=== PATIENT | male | born 1955 | race Caucasian/White ===

== ENCOUNTER 2018-04-07 07:38 | Emergency (ER) | payer OTHER ==
[2018-04-07 08:13] VITALS: BP 135/80
--- NOTE | 2018-04-07 09:02 | UC ---
Knee Pain HPI - HPI Summary HPI Summary: twisted right knee when he slipped on an icy walk at work yesterday, with increasing pain several hours later. Has used acetaminophen with some relief, but no use of ice or wraps. Had increased pain overnight. No previous right knee injury. Works for firm doing office work, some snow plowing. - History of Current Complaint Chief Complaint: UCLowerExtremity Stated Complaint: W/C RIGHT KNEE INJURY Time Seen by Provider: 04/07/18 08:52 Hx Obtained From: Patient Onset/Duration: Sudden Onset, Lasting Days - 1 Severity Initially: Moderate Severity Currently: Mild Pain Intensity: 8 Character: Aching, Stiffness Aggravating Factor(s): Movement, Weight Bearing, Stairs Alleviating Factor(s): Rest, OTC Meds Associated Signs And Symptoms: Positive: Negative Able to Bear Weight: Yes - Risk Factors Septic Arthritis Risk Factor: Negative Gout Risk Factor: Negative - Allergies/Home Medications Allergies/Adverse Reactions: Allergies Allergy/AdvReac Type Severity Reaction Status Date / Time No Known Allergies Allergy Verified 04/07/18 08:09 Home Medications: Home Medications Amitriptyline TAB* [Elavil TAB*] 25 mg PO BEDTIME 04/07/18 [History Confirmed ] Atorvastatin* [Lipitor*] 40 mg PO DAILY 04/07/18 [History Confirmed 04/07/18] Chlorthalidone TAB* [Hygroton TAB*] 25 mg PO DAILY 04/07/18 [History Confirmed 04/07/18] Citalopram TAB* [CeleXA TAB*] 40 mg PO DAILY 04/07/18 [History Confirmed ] Enalapril TAB* [Vasotec TAB*] 5 mg PO DAILY 04/07/18 [History Confirmed 04/07/18 ] amLODIPine TAB* [Norvasc 5 mg TAB*] 10 mg PO DAILY 04/07/18 [History Confirmed 04/07/18] PMH/Surg Hx/FS Hx/Imm Hx - Additional Past Medical History Additional PMH: takes amitryptilline and citaloprim per pain clinic for manangement of of headaches. Cardiovascular History: Hypertension - Surgical History Surgical History: None - Family History Known Family History: Positive: Non-Contributory - Social History Occupation: Employed Full-time Lives: With Family Alcohol Use: Daily Alcohol Amount: couple beers Substance Use Type: None Smoking Status (MU): Never Smoked Tobacco Review of Systems All Other Systems Reviewed And Are Negative: Yes Constitutional: Positive: Negative Skin: Positive: Negative Eyes: Positive: Negative ENT: Positive: Negative Respiratory: Positive: Negative Cardiovascular: Positive: Negative Gastrointestinal: Positive: Negative Genitourinary: Positive: Negative Motor: Positive: Negative Neurovascular: Positive: Negative Musculoskeletal: Positive: Arthralgia Neurological: Positive: Negative Psychological: Positive: Negative Is Patient Immunocompromised?: No Physical Exam Triage Information Reviewed: Yes Appearance: Well-Appearing, Pain Distress - mild Vital Signs: Initial Vital Signs Temp 98.8 F 04/07/18 08:08 Pulse 87 04/07/18 08:08 Resp 16 04/07/18 08:08 BP 135/80 04/07/18 08:08 Pulse Ox 98 04/07/18 08:08 Vital Signs Reviewed: Yes Neck exam: Normal Neck: Positive: Supple, Nontender Respiratory: Positive: Lungs clear, Normal breath sounds Cardiovascular: Positive: RRR, No Murmur Musculoskeletal: Positive: ROM Intact - right knee without effusion, can flex actively to approx 100 degrees. Tenderness insertion of lateral collateral ligament. Tenderness medial and superior to the knee joint Neurological: Positive: Alert, Muscle Tone Normal Psychological Exam: Normal Skin Exam: Normal Knee Pain Course/Dx - Course Course Of Treatment: ice, CASEY wrap, ibuprofen for a brief period of time. Follow up if not improving with orthopedics. - Differential Dx/Diagnosis Differential Diagnosis/HQI/PQRI: Contusion, Internal Derangement Of Knee, Sprain , Strain Provider Diagnosis: Sprain of lateral collateral ligament of knee Discharge - Sign-Out/Discharge Documenting (check all that apply): Patient Departure All imaging exams completed and their final reports reviewed: No Studies - Discharge Plan Condition: Stable Disposition: HOME Prescriptions: Ibuprofen TAB* [Motrin TAB* 600 MG] 600 mg PO Q6H PRN #30 tab PRN Reason: Pain - Moderate Patient Education Materials: Knee Pain (ED) Forms: *Work Release Referrals: Manolo Reese MD [Primary Care Provider] - Additional Instructions: Rest at home today, and use ice for 20 minutes every 1 to 2 hours. Use ibuprofen for pain control, but discontinue if it causes any stomach upset. You have a referral to orthopedics should pain not improve in the next 1 to 2 days as anticipated. - Billing Disposition and Condition Condition: STABLE Disposition: Home
== END 2018-04-07 09:25 | disposition home or self-care (01) ==
LOC: UCCORT 07:38
DX: S83.421A Sprain of lateral collateral ligament of right knee, initial encounter (principal); I10 Essential (primary) hypertension; R51 Headache; Z79.899 Other long term (current) drug therapy; W18.49XA Other slipping, tripping and stumbling without falling, initial encounter; Y92.9 Unspecified place or not applicable
CPT/HCPCS: 99202; G0463